=== PATIENT | female | born 1940 | race Caucasian/White ===

== ENCOUNTER 2016-07-11 10:41 | Outpatient (CLI) | payer MEDICARE ==
[2016-07-11 11:18] VITALS: BP 144/78
[2016-07-11] MEDS ORDERED: BISOPROLOL FUMA10 MG PO (13:09)
[2016-07-11] MEDS ORDERED: LISINOPRIL/HCTZ1 TA3 PO (13:10)
[2016-07-11] MEDS ORDERED: LEVOTHYROXIN0.075 M1 PO (13:10)
[2016-07-11] MEDS ORDERED: LIPITOR10 MG PO (13:11)
[2016-07-11] MEDS ORDERED: VITAMIN D1000 IU PO (13:11)
[2016-07-11] MEDS ORDERED: COQ-10100 MG PO (13:12)
[2016-07-11] MEDS ORDERED: OMEGA 3 FISH O1 EACH PO (13:12)
== END 2016-07-11 11:45 | disposition home or self-care (01) ==
LOC: COP 10:41
DX: M81.0 Age-related osteoporosis without current pathological fracture (principal)
CPT/HCPCS: J0897